=== PATIENT | male | born 1980 ===

== ENCOUNTER 2023-06-18 19:22 | Emergency (ER) | payer OTHER ==
[2023-06-18 19:41] VITALS: TEMP 98.7
[2023-06-18 20:10] LABS: Basophils # (A) 0.1 k/uL (0-0.2); Basophils % (A) 1 %; Eosinophils # (A) 0.4 k/uL (0-0.7); Eosinophils % (A) 5 %; HGB 15.9 gm/dL (13.0-17.5); Lymphocytes # (A) 1.7 k/uL (1.0-4.8); Lymphocytes % (A) 20 %; MCHC 34.5 g/dL (31.0-37.0); MCV 86.8 fL (80.0-100.0); Mean Platelet Volume 7.9; Monocytes # (A) 0.5 k/uL (0-1.0); Monocytes % (A) 5 %; Neutrophils # (A) 5.8 k/uL (1.3-7.7); Neutrophils % (A) 68 %; Platelet Count 256 k/uL (150-450); WBC 8.5 k/uL (3.8-10.6)
[2023-06-18 20:18] LABS: INR 0.9 (<1.2); Prothrombin Time 10.5 sec (10.0-12.5)
--- NOTE | 2023-06-18 20:23 | XR ---
EXAMINATION TYPE: XR chest 2V DATE OF EXAM: 06/18/2023 COMPARISON: NONE HISTORY: Chest pain TECHNIQUE: Frontal and lateral views of the chest are obtained. FINDINGS: There is no focal air space opacity, pleural effusion, or pneumothorax seen. The cardiac silhouette size is within normal limits. The osseous structures are intact. IMPRESSION: No acute cardiopulmonary process.
[2023-06-18 20:26] LABS: Potassium 4.2 mmol/L (3.5-5.1)
[2023-06-18 20:27] LABS: ALT 51 U/L (4-49); AST 36 U/L (17-59); African American GFR (CKD) >90 (>60 ml/min/1.73 sqM); Albumin 4.7 g/dL (3.5-5.0); Alkaline Phosphatase 88 U/L (38-126); Anion Gap 6 mmol/L; Blood Urea Nitrogen 20 mg/dL (9-20); Calcium 9.3 mg/dL (8.4-10.2); Carbon Dioxide 26 mmol/L (22-30); Chloride 107 mmol/L (98-107); Glucose 93 mg/dL (74-99); Magnesium 1.9 mg/dL (1.6-2.3); Non-African American GFR(CKD) 78 (>60 ml/min/1.73 sqM); Sodium 139 mmol/L (137-145); Total Bilirubin 0.9 mg/dL (0.2-1.3); Total Protein 7.9 g/dL (6.3-8.2)
--- NOTE | 2023-06-18 21:50 | ED ---
Chest Pain HPI - General Source: patient Mode of arrival: ambulatory Limitations: no limitations <Corey Cornell - Last Filed: 06/18/23 21:51> <Donny Sanchez - Last Filed: 06/26/23 02:40> - General Chief Complaint: Chest Pain Stated Complaint: Chest Tightness,SOB Time Seen by Provider: 06/18/23 21:48 - History of Present Illness Initial Comments: 42-year-old Slovak speaking male presenting to the ED with a chief complaint of palpitations. 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 States while working started to experience palpitations and pain on the left side of his chest. Also noted some associated shortness of breath and cramping of bilateral hands. At this time he reports symptoms have somewhat improved. Patient notes no history of cardiac disease. No history of hypertension or hypercholesterolemia or diabetes. Patient reports that he is an occasional cigarette/cigar smoker. Denies fever or chills. Denies IV drug use. (Corey Cornell) - Related Data Previous Rx's Medication Instructions Recorded Amoxicillin 875 mg PO Q12HR #14 tablet 06/19/23 Allergies Allergy/AdvReac Type Severity Reaction Status Date / Time No Known Allergies Allergy Verified 06/18/23 19:31 Review of Systems ROS Other: All systems not noted in ROS Statement are negative. <Corey Cornell - Last Filed: 06/18/23 21:51> ROS Other: All systems not noted in ROS Statement are negative. <Donny Sanchez - Last Filed: 06/26/23 02:40> ROS Statement: Those systems with pertinent positive or pertinent negative responses have been documented in the HPI. General Exam Limitations: no limitations <Corey Cornell - Last Filed: 06/18/23 21:51> Limitations: language barrier General appearance: alert, in no apparent distress Head exam: Present: atraumatic, normocephalic Eye exam: Present: normal appearance. Absent: scleral icterus, conjunctival injection ENT exam: Present: other (Patient has impaction of one of the maxillary teeth. Some associated gingivitis. No evident abscess.) Neck exam: Present: normal inspection Respiratory exam: Present: normal lung sounds bilaterally. Absent: respiratory distress, wheezes, rales, rhonchi, stridor, accessory muscle use Cardiovascular Exam: Present: regular rate, normal rhythm, normal heart sounds. Absent: systolic murmur, diastolic murmur, rubs, gallop GI/Abdominal exam: Present: soft. Absent: distended, tenderness, guarding, rebound, rigid, mass Extremities exam: Present: normal inspection, normal capillary refill. Absent: pedal edema, calf tenderness Back exam: Present: normal inspection. Absent: CVA tenderness (R), CVA tenderness (L) Neurological exam: Present: alert Skin exam: Present: warm, dry, intact, normal color. Absent: rash <Donny Sanchez - Last Filed: 06/26/23 02:40> - General Exam Comments Initial Comments: Visual Physical Exam Vital signs reviewed General: Well-appearing, nontoxic, no acute distress. Head: Normocephalic, atraumatic Eyes: PERRLA, EOMI ENT: Airway patent Chest: Nonlabored breathing Skin: No visual rash, normal skin tone Neuro: Alert and oriented 3 Musculoskeletal: No gross abnormalities (Corey Cornell) Course Vital Signs 06/18/23 06/19/23 06/19/23 19:25 01:06 01:23 Temperature 98.7 F Pulse Rate 86 70 69 Respiratory 18 16 16 Rate Blood Pressure 120/79 125/83 125/86 O2 Sat by Pulse 99 100 100 Oximetry Chest Pain MDM <Corey Cornell - Last Filed: 06/18/23 21:51> <Donny Sanchez - Last Filed: 06/26/23 02:40> - MDM Quicknote portion performed. Signed Corey Cornell PA-C (Corey Cornell) The patient had chest x-ray which I interpreted as negative for acute infiltrate, pneumothorax, congestive heart failure Patient is 42-year-old man presenting with chest pain and also with concerns about one of his teeth that is impacted. The lab workup here unremarkable. I did have relatively prolonged discussion with patient using the dramatic art teacher service and also using the Internet translation service on his phone. The patient is offered admission for further cardiac evaluation, but at this point he would like to go home. He is not having further chest symptoms. The patient will be given antibiotic coverage and to have follow-up with dentist/oral surgeon related to impacted tooth. Discussed appropriate further care and follow-up related to chest pain. Was pt. sent in by a medical professional or institution (, [facility], SURGICAL INSTRUMENT MECHANIC, urgent care, hospital, or fci...) When possible be specific @ -[No] Did you speak to anyone other than the patient for history (EMS, parent, family, police, friend...)? What history was obtained from this source @ -[Interpreted services used Did you review nursing and triage notes (agree or disagree)? Why? @ -[I reviewed and agree with nursing and triage notes] Were old charts reviewed (outside hosp., previous admission, EMS record, old EKG, old radiological studies, urgent care reports/EKG's, fci records)? Report findings @ -[No old charts were reviewed] Differential Diagnosis (chest pain, altered mental status, abdominal pain women, abdominal pain men, vaginal bleeding, weakness, fever, dyspnea, syncope, headache, dizziness, GI bleed, back pain, seizure, CVA, palpatations, mental health, musculoskeletal)? @ -[Differential Chest Pain: Stable Angina, Unstable Angina, STEMI, NSTEMI Aortic Dissection, Pneumothorax, Musculoskeletal, Esophageal Spasm GERD, Cholecystitis, Pancreatitis, Zoster, this is not meant to be an all-inclusive list. EKG interpreted by me (3pts min.). @ -[I interpreted as above] X-rays interpreted by me (1pt min.). @ -[I interpreted as above CT interpreted by me (1pt min.). @ -[None done] U/S interpreted by me (1pt. min.). @ -[None done] What testing was considered but not performed or refused? (CT, X-rays, U/S, labs)? Why? @ -[None] What meds were considered but not given or refused? Why? @ -[None] Did you discuss the management of the patient with other professionals (professionals i.e. , [employer], SURGICAL INSTRUMENT MECHANIC, lab, RT, psych nurse, social studies teacher, chief sales officer, teacher, sports development officer, family service caseworker)? Give summary @ -[No] Was smoking cessation discussed for >3mins.? @ -[No] Was critical care preformed (if so, how long)? @ -[No] Were there social determinants of health that impacted care today? How? (Homelessness, low income, unemployed, alcoholism, drug addiction, transportation, low edu. Level, literacy, decrease access to med. care, assisted, rehab)? @ -[No] Was there de-escalation of care discussed even if they declined (Discuss DNR or withdrawal of care, Hospice)? DNR status @ -[No] What co-morbidities impacted this encounter? (DM, HTN, Smoking, COPD, CAD, Cancer, CVA, ARF, Chemo, Hep., AIDS, mental health diagnosis, sleep apnea, morbid obesity)? @ -[None] Was patient admitted / discharged? Hospital course, mention meds given and route, prescriptions, significant lab abnormalities, going to OR and other pertinent info. @ -[See above Undiagnosed new problem with uncertain prognosis? @ -[No] Drug Therapy requiring intensive monitoring for toxicity (Heparin, Nitro, Insulin, Cardizem)? @ -[No] Were any procedures done? @ -[No] Diagnosis/symptom? @ -[Acute chest pain Chronically impacted tooth with associated gingivitis Acute, or Chronic, or Acute on Chronic? @ -[default] Uncomplicated (without systemic symptoms) or Complicated (systemic symptoms)? @ -[Uncomplicated Side effects of treatment? @ -[No] Exacerbation, Progression, or Severe Exacerbation? @ -[No] Poses a threat to life or bodily function? How? (Chest pain, [place], [place], pneumonia, PE, COPD, DKA, ARF, appy, cholecystitis, CVA, Diverticulitis, Homicidal, Suicidal, threat to staff... and all critical care pts) @ -[At this point low risk but requires further evaluation related to chest pain (Donny Sanchez) Disposition <Corey Cornell - Last Filed: 06/18/23 21:51> Is patient prescribed a controlled substance at d/c from ED?: No <Donny Sanchez - Last Filed: 06/26/23 02:40> Clinical Impression: Dental impaction, Chest pain Disposition: HOME SELF-CARE Condition: Good Instructions (If sedation given, give patient instructions): Chest Pain (ED) Prescriptions: Amoxicillin 875 mg PO Q12HR #14 tablet Referrals: Alan Ulrich DDS [STAFF PHYSICIAN] - 1-2 days Ethan Jacinto MD [STAFF PHYSICIAN] - 1-2 days
[2023-06-19] MEDS: AMOXICILLIN 875 MG TAB PO STA (01:14)
[2023-06-19 01:29] VITALS: BP 125/86; PULSE 69; RESP 16
== END 2023-06-19 01:24 | disposition home or self-care (01) ==
LOC: EC 19:22
DX: R07.89 Other chest pain (principal); K01.1 Impacted teeth; K05.10 Chronic gingivitis, plaque induced; F17.210 Nicotine dependence, cigarettes, uncomplicated; F17.290 Nicotine dependence, other tobacco product, uncomplicated
CPT/HCPCS: 36415; 71046; 80053; 83735; 84484; 85025; 85379; 85610; 85730; 93005; 99285